=== PATIENT | female | born 1955 | race Caucasian/White ===

== ENCOUNTER → 2019-09-25 10:24 | Outpatient (CLI) | payer MEDICARE | END | disposition home or self-care (01) | LOC: D.HCCECHO 10:24 | PROVIDERS: ATTEND Internal Medicine Cardiovascular Disease | DX: I48.91 Unspecified atrial fibrillation (principal) ==

== ENCOUNTER 2019-11-01 07:05 | Outpatient (CLI) | payer MEDICARE ==
[~2019-11-01] VITALS: Ht 167.6 cm; Wt 90.9 kg
[2019-11-01 07:51] VITALS: BP 106/56; Ht 167.6 cm; Wt 90.9 kg
[2019-11-01] MEDS ORDERED: LIPITOR10 MG PO (08:23)
[2019-11-01] MEDS ORDERED: PACERONE200 MG PO (08:23)
[2019-11-01] MEDS ORDERED: ELIQUIS5 MG PO (08:24)
[2019-11-01] MEDS ORDERED: KLONOPIN1 MG PO (08:24)
[2019-11-01] MEDS ORDERED: LISINOPRIL2.5 MG PO (08:25)
[2019-11-01] MEDS ORDERED: LASIX20 MG PO (08:25)
[2019-11-01] MEDS ORDERED: TOPROL XL100 MG PO (08:26)
[2019-11-01] MEDS ORDERED: SPIRIVA RESPIMAT4 G1 INH (08:26)
[2019-11-01] MEDS ORDERED: MULTI-DAY VITAM1 TAB PO (08:28)
[2019-11-01] MEDS ORDERED: VITAMIN D1000 UNIT PO (08:28)
[2019-11-01] MEDS ORDERED: CALCIUM 600 +1 EAC3 PO (08:28)
[2019-11-01] MEDS ORDERED: TOPROL XL50 MG PO (11:33)
== END 2019-11-01 12:00 | disposition home or self-care (01) ==
LOC: D.CATH 07:05
PROVIDERS: ATTEND Internal Medicine Cardiovascular Disease
DX: I48.91 Unspecified atrial fibrillation (principal); E78.5 Hyperlipidemia, unspecified; I42.9 Cardiomyopathy, unspecified; R07.9 Chest pain, unspecified

== ENCOUNTER → 2019-11-29 10:27 | Outpatient (CLI) | payer MEDICARE ==
[2019-11-01 07:51] VITALS: BMI 32.3
[~2019-11-29 10:27] MED LIST: CALCIUM 600 +1 EAC3 PO; ELIQUIS5 MG PO; KLONOPIN1 MG PO; LASIX20 MG PO; LIPITOR10 MG PO; LISINOPRIL2.5 MG PO; MULTI-DAY VITAM1 TAB PO; PACERONE200 MG PO; SPIRIVA RESPIMAT4 G1 INH; TOPROL XL100 MG PO; TOPROL XL50 MG PO; VITAMIN D1000 UNIT PO
== END | disposition home or self-care (01) ==
LOC: D.HCCECHO 10:27
PROVIDERS: ATTEND Internal Medicine Cardiovascular Disease
DX: I42.9 Cardiomyopathy, unspecified (principal)

== ENCOUNTER 2019-12-09 10:09 | Emergency (ER) | payer MEDICARE ==
[~2019-12-09] VITALS: Ht 167.6 cm; Wt 88.6 kg
[2019-12-09 10:27] VITALS: Ht 167.6 cm; Wt 88.6 kg
[2019-12-09] MEDS ORDERED: ULTRAM50 MG PO (11:27)
[2019-12-09] MEDS ORDERED: BACLOFEN20 M1 PO (11:27)
[2019-12-09 11:43] VITALS: BP 122/68
== END 2019-12-09 11:44 | disposition home or self-care (01) ==
LOC: D.ER 10:09
DX: M54.40 Lumbago with sciatica, unspecified side (principal); I10 Essential (primary) hypertension

== ENCOUNTER → 2019-12-12 18:03 | Outpatient (CLI) | payer MEDICARE ==
[2019-12-09 10:27] VITALS: BMI 31.5
[~2019-12-12 18:03] MED LIST changes: +BACLOFEN20 M1 PO; +ULTRAM50 MG PO
[2019-12-12 18:27] LABS: ANION GAP 15.4 mmol/L (8-16); CALCIUM 9.7 mg/dL (8.5-10.1); CARBON DIOXIDE 27.6 mmol/L (21.0-32.0)
== END | disposition home or self-care (01) ==
LOC: D.LABREF 18:03
PROVIDERS: ATTEND Internal Medicine Cardiovascular Disease
DX: I42.9 Cardiomyopathy, unspecified (principal)